=== PATIENT | male | born 1990 | race African-American/Black ===

== ENCOUNTER 2017-12-16 08:15 | Emergency (ER) | payer OTHER ==
[~2017-12-16] VITALS: Ht 177.8 cm; Wt 75.0 kg
[2017-12-16 08:21] VITALS: BP 109/69
[2017-12-16] MEDS ORDERED: ondansetron 4mg rapidly disintigrating tab PO ONE (09:15)
[2017-12-16] MEDS ORDERED: ONDA4TAB9 SL (09:41)
== END 2017-12-16 10:28 | disposition home or self-care (01) ==
LOC: ER 08:16
DX: B34.9 Viral infection, unspecified (principal); F12.10 Cannabis abuse, uncomplicated
CPT/HCPCS: 99283

== ENCOUNTER 2022-04-21 09:07 | Emergency (ER) | payer MEDICAID ==
[~2022-04-21] VITALS: Ht 188 cm; Wt 86.4 kg
[~2022-04-21 09:07] MED LIST: MAGN296S68 CORPAK
[2022-04-21 09:22] VITALS: BP 114/70
== END 2022-04-21 09:50 | disposition home or self-care (01) ==
LOC: ER 09:07
DX: F10.20 Alcohol dependence, uncomplicated (principal); F12.90 Cannabis use, unspecified, uncomplicated; Z72.89 Other problems related to lifestyle; Z59.00 Homelessness unspecified; Z79.899 Other long term (current) drug therapy; Y90.9 Presence of alcohol in blood, level not specified
CPT/HCPCS: 99281

== ENCOUNTER 2024-04-23 16:05 | Emergency (ER) | payer MEDICAID ==
[~2024-04-23] VITALS: Ht 190.5 cm; Wt 86.0 kg
[2024-04-23] MEDS: ondansetron/PF 4mg/2ml inj IV ONE ×2 (16:28→18:26)
[2024-04-23] MEDS: normal saline 1000ML IV soln IVB ONE (16:28)
[2024-04-23 16:42] LABS: BASOPHILS % (AUTO) 0.1 % (0-1); EOSINOPHILS # (AUTO) 0.2 X10'3 (0-0.9); HEMOGLOBIN 13.4 g/dl (14.0-17.9); LYMPHOCYTES # (AUTO) 2.4 X10'3 (1.1-4.8); LYMPHOCYTES % (AUTO) 43.3 % (21-51); MEAN CORPUSCULAR HEMOGLOBIN 28.6 PG (27.0-31.0); MEAN CORPUSCULAR HGB CONC 32.7 g/dL (33.0-36.5); MEAN CORPUSCULAR VOLUME 87.5 FL (78-98); MEAN PLATELET VOLUME 7.4 FL (7.4-10.4); MONOCYTES # (AUTO) 0.7 X10'3 (0-0.9); MONOCYTES % (AUTO) 13.1 % (2-12); NEUTROPHILS # (AUTO) 2.3 X10'3 (1.8-7.7); NEUTROPHILS % (AUTO) 40.5 % (42-75); PLATELET COUNT 277 X10'3 (140-440); RED BLOOD COUNT 4.68 X10'6 (4.70-6.10); RED CELL DISTRIBUTION WIDTH 13.4 % (11.5-14.5); WHITE BLOOD COUNT 5.7 X10'3 (4.5-11.0)
[2024-04-23 16:54] LABS: ALBUMIN 4.2 G/DL (3.4-5.0); ANION GAP 13 (8-16); BLOOD UREA NITROGEN 24 MG/DL (7-18); BUN/CREATININE RATIO 14.2 (10.0-20.0); CALCIUM 8.8 MG/DL (8.5-10.1); CHLORIDE 101 MMOL/L (99-107); CREATININE 1.69 MG/DL (0.60-1.10); GLUCOSE 218 MG/DL (70-104); SODIUM 139 MMOL/L (135-145); TOTAL CARBON DIOXIDE 25.5 MMOL/L (24-32); eCRCL 74 ML/MIN; eGFR 57 ML/MIN
[2024-04-23 16:56] LABS: POTASSIUM 2.7 MMOL/L (3.5-5.1)
[2024-04-23] MEDS: potassium cl 20mEq in 1/2 NS 1,000 ML IV ONE (17:38)
[2024-04-23] MEDS: potassium bicarbonate/cit acid 25mEq tablet.effervescent PO SCH (17:39)
[2024-04-23] MEDS: metoclopramide 5 mg/ml inj IV ONE (18:26)
[2024-04-23] MEDS: naloxone 0.4 mg/ml inj IV ONE (18:27)
[2024-04-23 19:26] LABS: BILIRUBIN,URINE NEGATIVE (Neg); CLARITY,URINE CLEAR (Clear); GLUCOSE, URINE NEGATIVE (Neg); KETONES,URINE NEGATIVE (Neg); LEUKOCYTE ESTERASE ,URINE NEGATIVE (Neg); NITRITES, URINE NEGATIVE (Neg); OCCULT BLOOD,URINE NEGATIVE (Neg); PROTEIN,URINE TRACE mg/dl (Neg)
[2024-04-23 19:31] LABS: COLOR,URINE DARK YELLOW (Yellow); UA COLLECTION TYPE VOIDED
[2024-04-23 19:32] LABS: URINE AMPHETAMINE SCREEN NEGATIVE (Neg); URINE BARBITUATE SCREEN NEGATIVE (Neg); URINE BENZODIAZEPINES SCREEN NEGATIVE (Neg); URINE CANNABINOID SCREEN NEGATIVE (Neg); URINE COCAINE SCREEN NEGATIVE (Neg); URINE METHADONE SCREEN NEGATIVE (Neg); URINE OPIATE SCREEN NEGATIVE (Neg); URINE PHENCYCLIDINE SCREEN NEGATIVE (Neg)
[2024-04-23 19:37] LABS: MUCUS STRANDS MANY /LPF (Neg); SQUAMOUS EPITHELIAL CELL,UR FEW /LPF (FEW)
[2024-04-23 19:38] LABS: BACTERIA,URINE FEW /HPF (Neg); RBC,URINE 0-2 /HPF (0-2); WBC,URINE 0-4 /HPF (0-4)
[2024-04-23 22:10] LABS: ETHANOL < 10 MG/DL (<10)
[2024-04-23 23:25] VITALS: TEMP 97.2
[2024-04-24 08:32] LABS: ALBUMIN 3.6 G/DL (3.4-5.0); ANION GAP 7 (8-16); BLOOD UREA NITROGEN 15 MG/DL (7-18); BUN/CREATININE RATIO 11.6 (10.0-20.0); CALCIUM 8.6 MG/DL (8.5-10.1); CHLORIDE 104 MMOL/L (99-107); CREATININE 1.29 MG/DL (0.60-1.10); GLUCOSE 86 MG/DL (70-104); POTASSIUM 3.4 MMOL/L (3.5-5.1); SODIUM 141 MMOL/L (135-145); eCRCL 97 ML/MIN; eGFR 78 ML/MIN
[2024-04-24 09:36] VITALS: BP 124/73; PULSE 85; RESP 20; O2SAT 98
== END 2024-04-24 09:39 | disposition home or self-care (01) ==
LOC: ER 16:05
DX: T40.601A Poisoning by unspecified narcotics, accidental (unintentional), initial encounter (principal); E87.6 Hypokalemia; F12.90 Cannabis use, unspecified, uncomplicated; R40.4 Transient alteration of awareness; Z79.899 Other long term (current) drug therapy; Y92.89 Other specified places as the place of occurrence of the external cause
CPT/HCPCS: 36415; 70450; 80048; 80305; 80320; 81001; 82948; 85025; 96361; 96365; 96366; 96375; 96376; 99291; 99292; J2310; J2405; J2765; J3480; J7030